=== PATIENT | female | born 1995 | race Caucasian/White ===

== ENCOUNTER → 2017-03-26 | Outpatient (CLI) | payer MEDICAID ==
[~2017-03-26] MED LIST: NONE PER PT
== END | disposition home or self-care (01) ==
LOC: STAR 10:06
PROVIDERS: ATTEND Obstetrics & Gynecology
DX: Z01.818 Encounter for other preprocedural examination (principal); N94.6 Dysmenorrhea, unspecified
CPT/HCPCS: 36415; 84703

== ENCOUNTER 2017-03-30 11:17 | Day surgery (SDC) | payer MEDICAID ==
[~2017-03-30] VITALS: Ht 175.3 cm; Wt 69.0 kg
[2017-03-30] MEDS ORDERED: LACTATED RINGERS 1,000 ML IV SCH (11:59)
[2017-03-30 12:21] VITALS: BP 118/76
[2017-03-30 12:24] LABS: HCG UR LOT HCG7030192
[2017-03-30] MEDS ORDERED: MIDAZOLAM 1 MG/ML, 2ML ONE (12:29)
[2017-03-30] MEDS ORDERED: FENTANYL PF 100 MCG/2ML ONE ×3 (12:29→14:27)
[2017-03-30] MEDS ORDERED: SUCCINYLCHOLINE 20 MG/ML, 10ML ONE (12:30)
[2017-03-30] MEDS ORDERED: DEXAMETHASONE 4 MG/ML, 1ML ONE (12:30)
[2017-03-30] MEDS ORDERED: NEOSTIGMINE 1 MG/ML, 10ML ONE (12:30)
[2017-03-30] MEDS ORDERED: GLYCOPYRROLATE 0.2MG/1ML, 5ML ONE (12:30)
[2017-03-30] MEDS ORDERED: ONDANSETRON 2MG/ML, 2ML ONE (12:30)
[2017-03-30] MEDS ORDERED: ROCURONIUM 10 MG/ML ONE (12:30)
[2017-03-30] MEDS ORDERED: PROPOFOL 10 MG/ML, 20ML ONE (12:30)
[2017-03-30] MEDS ORDERED: CEFAZOLIN 1,000 MG ONE (12:30)
[2017-03-30 12:40] LABS: HCG UR OBC PASS
[2017-03-30] MEDS ORDERED: EPINEPHRINE 1 MG/ML, 1ML ONE (13:05)
[2017-03-30] MEDS ORDERED: BUPIVACAINE/PF 0.25% ONE (13:05)
[2017-03-30] MEDS ORDERED: KETOROLAC 30 MG/1 ML ONE (13:28)
[2017-03-30] MEDS ORDERED: BUPIVACAINE/PF 0.25% INFIL ONE (13:54)
[2017-03-30] MEDS ORDERED: HYDROcodone/APAP 7.5-325MG/15ML UDC ONE (14:27)
[2017-03-30] MEDS ORDERED: ALBUTEROL SULFATE 2.5 MG/3 ML NPPB PRN (14:30)
[2017-03-30] MEDS ORDERED: EPHEDRINE 50 MG/ML, 1ML IVPush PRN (14:30)
[2017-03-30] MEDS ORDERED: ACETAMINOPHEN 325 MG TABLET PO PRN (14:30)
[2017-03-30] MEDS ORDERED: HYDROmorphone 1 MG/ML, 1ML IV PRN (14:30)
[2017-03-30] MEDS ORDERED: ONDANSETRON 2MG/ML, 2ML IVPush PRN (14:30)
[2017-03-30] MEDS ORDERED: HYDROcodone/APAP 7.5-325MG/15ML UDC PO PRN (14:30)
[2017-03-30] MEDS ORDERED: LABETALOL 5MG/ML, 20ML IV PRN (14:30)
[2017-03-30] MEDS ORDERED: DIAZEPAM 5 MG/ML, 2ML IVPush PRN (14:30)
[2017-03-30] MEDS ORDERED: MEPERIDINE/PF 25MG/0.5ML IVPush PRN (14:30)
[2017-03-30] MEDS ORDERED: OXYcodone 5 MG/5 ML ORAL.SOL UDC PO PRN (14:30)
[2017-03-30] MEDS ORDERED: METOPROLOL 1 MG/ML, 5ML IV PRN (14:30)
[2017-03-30] MEDS ORDERED: FENTANYL PF 100 MCG/2ML IV PRN (14:30)
[2017-03-30] MEDS ORDERED: hydrALAzine 20 MG/ML, 1ML IV PRN (14:30)
[2017-03-30] MEDS ORDERED: MIDAZOLAM 1 MG/ML, 2ML IV PRN (14:30)
[2017-03-30] MEDS ORDERED: PROMETHAZINE 25 MG/ML, 1ML IV PRN (14:30)
== END 2017-03-30 16:10 ==
LOC: OUT 11:17
PROVIDERS: ATTEND Obstetrics & Gynecology
DX: N80.9 Endometriosis, unspecified (principal); F32.9 Major depressive disorder, single episode, unspecified; F41.9 Anxiety disorder, unspecified
CPT/HCPCS: 58662; 81025; 88305; J0171; J0330; J1100; J1885; J2250; J2405; J2710; J3010; J3490; J7120; J0690; J2704

== ENCOUNTER 2019-08-13 22:28 | Emergency (ER) | payer MEDICAID, OTHER ==
[~2019-08-13] VITALS: Ht 175.3 cm; Wt 74.0 kg
[2019-08-13 22:47] VITALS: BP 127/69
[2019-08-13 23:37] LABS: BASOPHILS # (AUTO) 0.01 x10^3/uL (0-0.1); BASOPHILS % (AUTO) 0 % (0-1); EOSINOPHILS # (AUTO) 0.01 x10^3/uL (0-0.4); EOSINOPHILS % (AUTO) 0 % (1-7); LYMPHOCYTES # (AUTO) 0.57 x10^3/uL (1-3.4); LYMPHOCYTES % (AUTO) 5 % (22-44); MD NO; MEAN CORPUSCULAR HEMOGLOBIN 33.3 pg (27.0-34.8); MEAN CORPUSCULAR HGB CONC 34.2 g/dL (32.4-35.8); MEAN CORPUSCULAR VOLUME 97.5 fL (80-100); MEAN PLATELET VOLUME 8.1 fL (7.4-10.4); MONOCYTES # (AUTO) 0.27 x10^3/uL (0.2-0.8); MONOCYTES % (AUTO) 2 % (2-9); NEUTROPHILS # (AUTO) 11.34 x10^3/uL (1.8-6.8); NEUTROPHILS % (AUTO) 93 % (42-75); PLATELET COUNT 242 x10^3/uL (130-400); RED BLOOD COUNT 4.29 x10^6/uL (3.82-5.3); RED CELL DISTRIBUTION WIDTH 12.2 % (9.6-15.2)
[2019-08-13 23:50] LABS: ANION GAP 9 mmol/L (5-15); CHLORIDE 105 mmol/L (98-107); CREATININE 0.63 mg/dL (0.55-1.02)
[2019-08-13] MEDS ORDERED: ONDANSETRON 2MG/ML, 2ML ONE (23:51)
[2019-08-14] MEDS ORDERED: ONDANSETRON 2MG/ML, 2ML IVPush ONE
[2019-08-14] MEDS ORDERED: SODIUM CHLORIDE 0.9% 1,000ML IVBOLUS ONE
--- NOTE | 2019-08-14 01:23 | NUR ---
Pt tolerate po intake with no difficulty
[2019-08-14 01:31] LABS: CULTURE INDICATED? YES; MICROSCOPIC INDICATED
== END 2019-08-14 01:43 | disposition home or self-care (01) ==
LOC: ED 23:30
DX: O21.1 Hyperemesis gravidarum with metabolic disturbance (principal); Z3A.11 11 weeks gestation of pregnancy
CPT/HCPCS: 36415; 80048; 81001; 84702; 85025; 87086; 96361; 96374; 99283; J2405; J7030